=== PATIENT | male | born 2005 | race Caucasian/White ===

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

== ENCOUNTER 2025-08-18 15:28 | Emergency (ER) | payer BC, SELFPAY ==
[2025-08-18 15:32] VITALS: BP 120/62
--- NOTE | 2025-08-18 15:57 | ED.GENMED ---
History of Present Illness
General
Chief Complaint: Head Injury
Source: patient
Time Seen by Provider: 08/18/25 15:45
History of Present Illness
History of Present Illness:
This patient is a 20-year-old male presents emergency after suffering a minor head injury approximate hour prior to presentation. He was laying in bed and got up quickly accidentally hitting the back of his head on the left side against the wall.
There was no injury to the wall. He did not pass out or fall to the ground. He initially felt a little nauseous with a mild headache which is now fully resolved. He says that when he went outside felt like the light was a little bit bothersome to
him. Initially, he said he felt like he had a really think before he spoke, also resolved. When the actual impact occurred he noted a 'flash' in his visual field which is now fully resolved. He denies double vision, blurry vision, dizziness, neck
pain, numbness, focal weakness, or other complaints. Patient is not on any anticoagulation medication and does not play organized sports. Patient does note a small area of soft tissue swelling and tenderness at the left scalp area.
Past History
Past History
ED Past Medical History: None
ED Past Surgical History: None
Social History
Tobacco: Non-smoker
Alcohol: Occasional
Drug: None
Personal: Single
Living: with family
Phy Exam
Physical Exam
Physical Exam:
GENERAL: Alert , in no apparent distress
EYE: pupils equal and reactive, EOMI, no objective photophobia, no nystagmus
NECK: Supple, no significant adenopathy no midline tenderness.
ENT: o/p clr, mmm, no hemotympanum, no guzmán, no raccoon. There is a small contusion noted at the left parietal area without associated skin changes.
CARDIAC: Regular rate and rhythm .
LUNGS: Clear breath sounds bilaterally, no acute respiratory distress, no wheezes/rales/rhonchi
ABDOMEN: Soft, without focal tenderness, no r/g, no cvat
NEUROLOGICAL: Alert and oriented, no focal neuro deficits, visual zapata intact, [id number] normal, motor 5 out of 5, sensory intact, cranial nerves II through XII intact, gait normal
SKIN: Warm and dry, skin intact.
MUSCULOSKELETAL: No edema, well perfused.
PSYCH: Normal and appropriate interaction.
Course
Vital Signs
Initial and Last Documented VS:
Initial Vital Signs
Temp Pulse Resp BP Pulse Ox
97.7 F 91 18 120/62 98
08/18/25 15:32 08/18/25 15:32 08/18/25 15:32 08/18/25 15:32 08/18/25 15:32
Last Documented Vital Signs
Temp Pulse Resp BP Pulse Ox
97.7 F 91 18 120/62 98
08/18/25 15:32 08/18/25 15:32 08/18/25 15:32 08/18/25 15:32 08/18/25 15:32
*Pulse Oximetry
SaO2: 98
Oxygen Mode of Delivery: Room air
Patient hypoxic: no
*Critical Care Note
Total Time (30-74mins, 75-104mins- exclusive of procedures): Not Applicable
Update Note
Update Note:
Patient presents to the Emergency Department with ____head injury
Number and Complexity of Problems Addressed at the Encounter
� Chronic conditions affecting care:
� Acute Exacerbation and/or Progression of Chronic Illness:
� Differential Diagnosis includes: But not limited to laceration, abrasion, concussion, intracranial bleed, etc.
Amount and/or Complexity of Data to be Reviewed and Analyzed
� I performed an independent evaluation of and my interpretation is:
EKG:
CT:
Xrays:
Laboratory Studies:
Other:
� Review of other/old records reveals:
� Clinical information was obtained by an independent historian:
� Prescriptions/Medications Considered but not given:
� Further testing considered but not performed:
Risk of Complications and/or Morbidity or Mortality of Patient Management
� Social determinants of health affecting care:
� Discussion with other providers (PCP, Hospitalists, Consultants, etc):
� Escalation of care including admission/observation vs risk of discharge considered: Patient's neurological exam here completely normal. Suspect suspect based on patient's reported symptoms that he suffered a mild concussion.
Discussed with him concussion precautions, avoiding tach sports, following up with his doctor for clearance, etc. I have very little suspicion for intracranial injury based on his reassuring exam and low impact history. Discussed with patient
importance of follow-up and reasons return to ER.
ED Attending Note
-
Portions of this chart may have been created with voice recognition software.� Occasional wrong word or��sound alike� substitutions may have occurred due to the inherent limitations of voice recognition software.
Discharge Plan
Departure
Patient Disposition: Home (Routine Discharge)
Date of Disposition: 08/18/25
Time of Disposition: 15:57
Patient with high blood pressure during this ER visit?: No
Condition: Good
Discharge Problem:
Concussion
Instructions: Concussion, Adult (DC), Contusion (DC), Minor Head Injury (DC)
Prescriptions:
No Action
No Current Medications
Referrals:
UNKNOWN - PT DOES,NOT KNOW [Family Provider]
Activity Restrictions/Additional Instructions:
IF YOU DEVELOP SEVERE HEADACHE, VOMITING, NUMBNESS, WEAKNESS, CHANGE IN SPEECH, CHANGE IN BALANCE, CHEST PAIN, PALPITATIONS, THE LIGHT HURTS YOUR EYES, CHANGE IN VISION, OR OTHER WORRISOME SIGNS, PLEASE RETURN TO THE ER IMMEDIATELY! PLEASE SEE YOUR
DOCTOR IN CLOSE FOLLOW-UP
Discharge Date and Time
Print Language: BENGALI
== END 2025-08-18 16:02 | disposition home or self-care (01) ==
LOC: EMR 15:28
PROVIDERS: EMERGENCY PHYSICIAN Emergency Medicine
DX: S06.0X0A Concussion without loss of consciousness, initial encounter (principal); W22.01XA Walked into wall, initial encounter; Y92.003 Bedroom of unspecified non-institutional (private) residence as the place of occurrence of the external cause
CPT/HCPCS: 99282